=== PATIENT | female | born 1995 | race Caucasian/White ===

== ENCOUNTER 2017-02-05 15:32 | Observation (INO) | payer OTHER ==
[2017-02-05] MEDS ORDERED: Ondansetron INJ* 2 MG/ML VIAL IV ONE (18:36)
[2017-02-05] MEDS ORDERED: NS 0.9% 1000 ML* 2,000 ML IV ONE (18:36)
[2017-02-05] MEDS ORDERED: Ketorolac INJ* 30 MG/ML 1 ML VIAL IV PUSH ONE (18:36)
--- NOTE | 2017-02-05 19:29 | RAD ---
CLINICAL HISTORY: Left flank pain and hematuria COMPARISON: Pelvic ultrasound dated June 26, 2015 that demonstrates pathologically enlarged periuterine veins up to 7 mm in diameter. TECHNIQUE: Noncontrast CT examination of the abdomen and pelvis from the lung bases through the initial tuberosities. FINDINGS: VISUALIZED LUNG BASES: The visualized lung bases are grossly clear. There is no pleural effusion. ABDOMEN AND PELVIS: Evaluation of the solid organs and vasculature is limited without intravenous contrast. The liver, spleen, pancreas and adrenal glands are grossly normal in appearance. The gallbladder is normal. The kidneys are normal in appearance without focal mass, calcification or signs of hydronephrosis. Evaluation of the gastrointestinal tract is limited without oral contrast. The small and large bowel are not distended.The patient's normal appendix is identified in the right lower quadrant measuring approximately 6 mm in diameter (coronal image 33). There is no gross retroperitoneal or mesenteric lymphadenopathy. The pelvic viscera is normal in appearance. The left ovarian vein is enlarged measuring up to 8 x 15 mm in the axial plane (image 97 of 181). More complete evaluation of the abdominopelvic vasculature cannot be made on this noncontrast CT examination. For example a cannot be determined if there is Nutcracker syndrome or May Thurner syndrome. There are no sinister bone lesions. IMPRESSION: 1. No renal calculi or signs of hydroureteronephrosis. 2. No acute inflammatory change or evidence of pathologic obstruction involving the gastrointestinal tract within the limitations of a noncontrast enhanced CT. 3. The left ovarian vein is enlarged measuring up to 8 x 15 mm in the axial plane. On the patient's June 26, 2015 pelvic ultrasound there are pathologically dilated periuterine veins documented. Such imaging findings can be seen in the setting of pelvic congestion syndrome.
[2017-02-05 19:33] LABS: Hematocrit 42 % (35-47); Hemoglobin 13.3 g/dl (12.0-16.0); Mean Corpuscular HGB Conc 32 g/dl (31-36); Mean Corpuscular Hemoglobin 28 pg (27-31); Mean Corpuscular Volume 87 fL (80-97); Mean Platelet Volume 9 um3 (7.4-10.4); Red Blood Count 4.76 10^6/ul (4.0-5.4); Red Cell Distribution Width 13 % (10.5-15); White Blood Count 11.5 10^3/ul (3.5-10.8)
[2017-02-05 19:50] LABS: Albumin 4.5 g/dL (3.2-5.2); Calcium 9.2 mg/dL (8.6-10.3); EGFR African American 114.8 (>60); EGFR Non-African American 89.3 (>60); Globulin 2.7 g/dL (2-4); Potassium 3.9 mmol/L (3.5-5.0); Total Bilirubin 0.6 mg/dL (0.2-1.0); Total Protein 7.2 g/dL (6.4-8.9)
--- NOTE | 2017-02-05 21:50 | ED ---
Abdominal Pain/Female - HPI Summary HPI Summary: 21F LMP 2 weeks ago presents with LLQ pain for 3 days. She states pain radiates to her flank and has hematuria. She states that two weeks ago she noticed worms in her stool so she tried to get approval for antihelmic medication from insurance and she finally got it Sunday and took the medication. She states after that she developed this pain. She also states she has been constipated and has not had a bowel movement for two weeks. She admits to nausea but denies any vomiting. She has never had this pain before. She states she has not had a normal period in 3 years as she has been twice with last 8 months ago full term with no complications. She is not on any control. She states her pain is 8/10. She denies any vaginal discharge, dysuria, frequency, or urgency. - History of Current Complaint Chief Complaint: EDAbdPain Stated Complaint: ABD PAIN/3DAYS Time Seen by Provider: 02/05/17 18:21 Hx Last Menstrual Period: April 2013 Pain Intensity: 8 Allergies/Adverse Reactions: Allergies Allergy/AdvReac Type Severity Reaction Status Date / Time Amoxicillin Allergy Severe Anaphylatic Verified 02/05/17 15:34 Shock Penicillins Allergy Severe Anaphylatic Verified 02/05/17 15:34 Shock Lactose Intolerance (GI) Allergy GI upset Verified 02/05/17 15:34 PMH/Surg Hx/FS Hx/Imm Hx Cardiovascular History: Denies: Hx Pacemaker/ICD Respiratory History: Reports: Hx Asthma - RESCUE INHALER GI History: Reports: Other GI Disorders - ABDOMINAL PAINS Sensory History: Denies: Hx Contacts or Glasses, Hx Hearing Aid Opthamlomology History: Denies: Hx Contacts or Glasses Psychiatric History: Reports: Hx Anxiety - MILD, Hx Depression - MILD Denies: Hx Panic Disorder - Surgical History Surgery Procedure, Year, and Place: 2008 TONSILLECTOMY AND ADENOIDECTOMY, [facility]. 06/16/15 office procedure to have cells removed from uterus Hx Anesthesia Reactions: No Infectious Disease History: No Infectious Disease History: Denies: Traveled Outside the [place] in Last 30 Days - Family History Known Family History: Positive: None Negative: Blood Disorder - Social History Alcohol Use: Occasionally Substance Use Type: Reports: None Smoking Status (MU): Never Smoked Tobacco Review of Systems Negative: Fever Negative: Chest Pain Negative: Shortness Of Breath Positive: Abdominal Pain, Nausea, Other - constipation Positive: flank pain, hematuria All Other Systems Reviewed And Are Negative: Yes Physical Exam Triage Information Reviewed: Yes Vital Signs On Initial Exam: Initial Vitals Temp Pulse Resp BP Pulse Ox 98.2 F 75 16 113/62 99 02/05/17 15:34 02/05/17 15:34 02/05/17 15:34 02/05/17 15:34 02/05/17 15:34 Vital Signs Reviewed: Yes Appearance: Positive: Pain Distress Skin: Positive: Warm, Dry Head/Face: Positive: Normal Head/Face Inspection Eyes: Positive: Normal, EOMI, MIRANDA, Conjunctiva Clear ENT: Positive: Normal ENT inspection, Pharynx normal, TMs normal Respiratory/Lung Sounds: Positive: Clear to Auscultation, Breath Sounds Present Cardiovascular: Positive: Normal, RRR Abdomen Description: Positive: Soft, CVA Tenderness (L), Other: - tenderness LLQ , no rebound Bowel Sounds: Positive: Present - Dell Coma Scale Coma Scale Total: 15 Diagnostics - Vital Signs Vital Signs Temp Pulse Resp BP Pulse Ox 02/05/17 20:00 69 106/54 99 02/05/17 19:30 65 105/59 100 02/05/17 19:16 63 100 02/05/17 19:14 96/46 02/05/17 19:10 98.2 F 64 18 96/46 99 02/05/17 17:33 97.9 F 94 18 114/57 100 02/05/17 15:34 98.2 F 75 16 113/62 99 - Laboratory Lab Results: Lab Results 02/05/17 02/05/17 Range/Units 19:30 19:30 WBC 11.5 H (3.5-10.8) 10^3/ul RBC 4.76 (4.0-5.4) 10^6/ul Hgb 13.3 (12.0-16.0) g/dl Hct 42 (35-47) % MCV 87 (80-97) fL MCH 28 (27-31) pg MCHC 32 (31-36) g/dl RDW 13 (10.5-15) % Plt Count 269 (150-450) 10^3/ul MPV 9 (7.4-10.4) um3 Neut % (Auto) 81.9 (38-83) % Lymph % (Auto) 13.4 L (25-47) % Bullock % (Auto) 4.0 (1-9) % Eos % (Auto) 0.1 (0-6) % Baso % (Auto) 0.6 (0-2) % Absolute Neuts (auto) 9.4 H (1.5-7.7) 10^3/ul Absolute Lymphs (auto) 1.5 (1.0-4.8) 10^3/ul Absolute Monos (auto) 0.5 (0-0.8) 10^3/ul Absolute Eos (auto) 0 (0-0.6) 10^3/ul Absolute Basos (auto) 0.1 (0-0.2) 10^3/ul Absolute Nucleated RBC 0.01 10^3/ul Nucleated RBC % 0 Sodium 136 (133-145) mmol/L Potassium 3.9 (3.5-5.0) mmol/L Chloride 104 (101-111) mmol/L Carbon Dioxide 25 (22-32) mmol/L Anion Gap 7 (2-11) mmol/L BUN 13 (6-24) mg/dL Creatinine 0.81 (0.51-0.95) mg/dL Est GFR ( Amer) 114.8 (>60) Est GFR (Non-Af Amer) 89.3 (>60) BUN/Creatinine Ratio 16.0 (8-20) Glucose 74 (70-100) mg/dL Calcium 9.2 (8.6-10.3) mg/dL Total Bilirubin 0.60 (0.2-1.0) mg/dL AST 13 (13-39) U/L ALT 7 (7-52) U/L Alkaline Phosphatase 59 (34-104) U/L C-React Prot High Sens 0.22 mg/L Total Protein 7.2 (6.4-8.9) g/dL Albumin 4.5 (3.2-5.2) g/dL Globulin 2.7 (2-4) g/dL Albumin/Globulin Ratio 1.7 (1-3) Lipase 20 (11.0-82.0) U/L Beta HCG, Quant 3614.00 mIU/mL Result Diagrams: 02/05/17 19:30 02/05/17 19:30 Lab Statement: Any lab studies that have been ordered have been reviewed, and results considered in the medical decision making process. - Ultrasound No standard instances Ultrasound Interpretation: Positive (See Comments) - There is no live intrauterine gestation identified. In the left adnexa there is a moderately vascular structure with an anechoic center which could be consistent with ectopic in the correct clinical setting. Other potential etiologies include a too early to visualize or missed . Close clinical and sonographic follow-up including serial beta hCGs are advised. 2. As was documented on the patient's prior pelvic ultrasound there are dilated parauterine veins measuring up to 7 mm in diameter. Ultrasound Interpretation Completed By: Radiologist Abdominal Pain Fem Course/Dx - Course Course Of Treatment: 21F LMP 2 weeks ago presents with LLQ pain for 3 days. She states pain radiates to her flank and has hematuria. She states that two weeks ago she noticed worms in her stool so she tried to get approval for antihelmic medication from insurance and she finally got it Sunday and took the medication. She states after that she developed this pain. She also states she has been constipated and has not had a bowel movement for two weeks. She admits to nausea but denies any vomiting. She has never had this pain before. She states she has not had a normal period in 3 years as she has been twice with last 8 months ago full term with no complications. She is not on any control. She states her pain is 8/10. She denies any vaginal discharge, dysuria, frequency, or urgency. on exam tenderness in LLQ and pos CVA tenderness left flank. do to pt stating LMP [address] as was concerned for kidney stone. CT normal. patient labs HCG 3000. got u/s and shows ectopic. called dr isabel who will take to OR. - Diagnoses Differential Diagnosis: Positive: Constipation, Ectopic , Renal Colic, Urinary Tract Infection Provider Diagnoses: Ectopic - Provider Notifications Discussed Care Of Patient With: dr isabel Time Discussed With Above Provider: 11:00 - will see in ED Discharge - Discharge Plan Condition: Stable Disposition: ADMITTED TO [facility]
--- NOTE | 2017-02-05 22:00 | RAD ---
HISTORY: Left lower quadrant pain with a beta-hCG measuring 3614. COMPARISONS: CT of the abdomen and pelvis from the same date at did not show any acute abnormalities. TECHNIQUE: Multiple transverse and longitudinal ultrasound images were obtained of the pelvis using grayscale, color flow, spectral and M-mode sonographic imaging. FINDINGS: UTERUS: The uterus measures 7.1 x 4.1 x 5.1 cm. The mildly heterogeneous endometrium measures 8 mm in thickness. GESTATION: There is no gestational sac, pole or yolk sac identified in the endometrial canal. At the left adnexa there is an anechoic structure surrounded by minimally vascular echogenic material measuring approximately 1.8 x 2.3 x 2.7 cm. There is peripheral vascularity of the structure. There is a [id number] amount of free fluid in the adnexa. As was noted on prior sonograms there are enlarged parauterine veins measuring up to 7 mm in diameter. RIGHT OVARY: The right ovary measures 3.3 x 1.9 x 2.2 cm. LEFT OVARY: The left ovary measures 3.5 x 1.5 x 2.5 cm. IMPRESSION: 1. There is no live intrauterine gestation identified. In the left adnexa there is a moderately vascular structure with an anechoic center which could be consistent with ectopic in the correct clinical setting. Other potential etiologies include a too early to visualize or missed . Close clinical and sonographic follow-up including serial beta hCGs are advised. 2. As was documented on the patient's prior pelvic ultrasound there are dilated parauterine veins measuring up to 7 mm in diameter. Findings, specifically the possibility for ectopic , were discussed with ARIK Arriola over the telephone at 2156 hours on February 05, 2017.
[2017-02-05] MEDS ORDERED: Bupivacaine 0.25% SDV* 30 ML ONE (23:49)
[2017-02-05] MEDS ORDERED: Midazolam* 1 MG/ML 5 ML VIAL (5 MG) ONE (23:52)
[2017-02-05] MEDS ORDERED: fentaNYL* 50 MCG/ML 5 ML VIAL (250 MCG VIAL) ONE (23:52)
[2017-02-05] MEDS ORDERED: Propofol* 10 MG/ML 20 ML BTL IV PUSH ONE (23:53)
[2017-02-05] MEDS ORDERED: Ondansetron INJ* 2 MG/ML VIAL ONE (23:53)
[2017-02-05] MEDS ORDERED: Ketorolac INJ* 30 MG/ML 1 ML VIAL ONE (23:53)
[2017-02-05] MEDS ORDERED: Atracurium* 10 MG/ML 10 ML VIAL ONE (23:53)
[2017-02-05] MEDS ORDERED: Lidocaine 2% PF * 5 ML VIAL ONE (23:53)
[2017-02-06] MEDS ORDERED: Dexamethasone IV* 4 MG/ML 1 ML (4 MG) IV SLOW PU ONE (00:01)
[2017-02-06] MEDS ORDERED: Sodium Citrate/Citric Acid* 15 ML UDC PO ONE (00:01)
[2017-02-06] MEDS ORDERED: Buffered Lidocaine 0.9% SYRIN* 5 ML/SYR SYRINGE INTRADERM ONE (00:01)
[2017-02-06] MEDS ORDERED: Metoclopramide IV* 5 MG/ML 2 ML VIAL IV SLOW PU ONE (00:01)
[2017-02-06] MEDS ORDERED: Famotidine IV* 10 MG/ML 2 ML (20 mg) IV ONE (00:01)
[2017-02-06] MEDS ORDERED: Metoclopramide TAB* 10 MG ONE (00:03)
[2017-02-06] MEDS ORDERED: Famotidine IV* 10 MG/ML 2 ML (20 mg) ONE (00:03)
[2017-02-06] MEDS ORDERED: Dexamethasone IV* 4 MG/ML 1 ML (4 MG) ONE (00:03)
[2017-02-06] MEDS ORDERED: Sodium Citrate/Citric Acid* 15 ML UDC ONE (00:03)
[2017-02-06] MEDS ORDERED: Metoclopramide IV* 5 MG/ML 2 ML VIAL ONE (00:08)
[2017-02-06] MEDS ORDERED: Levalbuterol HFA INHALER* 1 PUFF MDI ONE (00:20)
[2017-02-06] MEDS ORDERED: Lidocaine 2% PF * 5 ML VIAL ONE (00:26)
[2017-02-06] MEDS ORDERED: fentaNYL* 50 MCG/ML 2 ML VIAL (100 MCG VIAL) ONE (00:54)
[2017-02-06] MEDS ORDERED: HYDROmorphone* 1 MG/ML 1 ML SYR IV PRN (00:55)
[2017-02-06] MEDS ORDERED: Ondansetron INJ* 2 MG/ML VIAL IV PRN (00:55)
[2017-02-06] MEDS ORDERED: DiMENhydriNATE IV* 50 MG/ML VIAL IV PUSH PRN (00:55)
[2017-02-06] MEDS ORDERED: fentaNYL* 50 MCG/ML 2 ML VIAL (100 MCG VIAL) IV PRN (00:55)
[2017-02-06] MEDS ORDERED: Scopolamine 1.5 mg* PATCH TRANSDERM PRN (00:55)
[2017-02-06] MEDS ORDERED: Glycopyrrolate IV* 0.2 MG/ML 1 ML VIAL ONE (01:03)
[2017-02-06] MEDS ORDERED: Ibuprofen TAB* 600 MG PO PRN (01:49)
[2017-02-06] MEDS ORDERED: oxyCODONE/Acetamin 5/325 MG* TAB PO PRN ×2 (01:49→01:51)
[2017-02-06 06:03] LABS: Hematocrit 37 % (35-47); Hemoglobin 12.1 g/dl (12.0-16.0); Mean Corpuscular HGB Conc 32 g/dl (31-36); Mean Corpuscular Hemoglobin 28 pg (27-31); Mean Corpuscular Volume 87 fL (80-97); Mean Platelet Volume 8 um3 (7.4-10.4); Red Blood Count 4.28 10^6/ul (4.0-5.4); Red Cell Distribution Width 13 % (10.5-15); White Blood Count 11.6 10^3/ul (3.5-10.8)
[2017-02-06 07:58] VITALS: BP 93/65
--- NOTE | 2017-02-06 17:22 | OP ---
DATE OF OPERATION: 02/06/17 - ROOM #346 DATE OF : 89 SURGEON: Dr. Rutledge. MANUFACTURING OPERATOR: Dr. Caba. ANESTHESIOLOGIST: Dr. Zurita ANESTHESIA: General endotracheal anesthesia. PRE-OP DIAGNOSIS: Left tubal ectopic . POST-OP DIAGNOSIS: Left tubal ectopic . OPERATIVE PROCEDURE: Laparoscopic left salpingectomy. ESTIMATED BLOOD LOSS: Minimal, less than 50 cc. URINE OUTPUT: 300 cc clear urine. FINDINGS: Anteverted uterus, normal-appearing right fallopian tube, normal- appearing right ovary, left fallopian tube with an ampullary ectopic, there was hemoperitoneum, and the left ovary appeared normal. COMPLICATIONS: None. COUNTS: Sponge, lap, and needle count correct x2. CONDITION: The patient was brought to recovery room in stable condition. DESCRIPTION OF PROCEDURE: The patient was brought to the operating room. When general anesthesia was found to be adequate, a Perez catheter was placed under sterile conditions. The patient was prepped and draped in the usual sterile fashion in the dorsal supine position. Time-out was performed. A 10 mm skin incision was made in the infraumbilical fold, using the S retractors and a Rosemarie clamp the fascia was identified. The fascia was grasped between two Kavitha clamps and the fascia was incised with a scalpel. The fascia was tagged with 0 Vicryl with UR 6 needles. The peritoneum was entered bluntly. The Hernan was placed, correct placement was confirmed with a laparoscope. Pneumoperitoneum was achieved. Lidocaine was instilled approximately 2 cm above the suprapubic bone in the midline, a 5 mm skin incision was made and 5 mm trocar and sleeve were advanced under direct visualization. Lidocaine was instilled in the right lower quadrant. A 5 mm skin incision was made and a 5 mm trocar and sleeve were advanced under direct visualization. Exam of the abdomen and pelvis was performed with the above findings noted. The left fallopian tube was grasped with a blunt grasper and using the LigaSure, the left fallopian tube was excised with the ectopic which took up the entire ampulla to the fimbriated end. Excellent hemostasis was noted. The left fallopian tube with ectopic was placed in the endobag and removed under direct visualization. The incision site was examined. There was no bleeding seen. The suction hoisting laborer was used to remove hemoperitoneum, again the incision site was examined and found to be hemostatic. The 5 mm trocars were removed under direct visualization. The 10 mm trocar was removed with the laparoscope in place. The fascia was closed using 0 Vicryl. No defect was palpated after closure. The skin was closed using 4-0 suture. Steri-Strips were applied. Perez catheter was removed. The patient tolerated the procedure well. [id number]/[facility] #: [id number] MTDD
[2017-02-09] MEDS ORDERED: Scopolomine PATCH Remove* 1 NOTE MISC PATCH OFF ONE (00:56)
== END 2017-02-06 12:15 | disposition home or self-care (01) ==
LOC: ED 15:32 → OR 23:45 → SSU 02-06 02:58
PROVIDERS: ADMIT Obstetrics & Gynecology; ATTEND Obstetrics & Gynecology
DX: O00.10 Tubal pregnancy without intrauterine pregnancy (principal); K66.1 Hemoperitoneum; J45.909 Unspecified asthma, uncomplicated
CPT/HCPCS: 36415; 74176; 76817; 80053; 83690; 84702; 85025; 85027; 86141; 86850; 86900; 86901; 88305; 99282; A9270-GY; G0378; J1100; J1885; J2250; J2405; J2704; J2765; J3010

== ENCOUNTER 2017-09-17 12:06 | Emergency (ER) | payer OTHER ==
[2017-09-17 13:14] VITALS: BP 98/55
--- NOTE | 2017-09-17 14:08 | UC ---
Abdominal Pain Female HPI - HPI Summary HPI Summary: Low abd pain R>L with radiation down anterior R leg for about a week. Also occ has the sensation that her legs are warm, "like I wet myself," despite them being dry. Denies numbness or weakness. Hx L-sided ectopic 7 months ago with surgical removal of L tube. -- 2 vaginal births, 1 ectopic, 1 ab. Currently has mirena in, not trying for . No n/v/d, some increased burping. - History of Current Complaint Chief Complaint: UCBackPain Stated Complaint: LEG AND ABDOMINAL PAIN Time Seen by Provider: 09/17/17 13:55 Hx Obtained From: Patient Hx Last Menstrual Period: Mirena- unknown ?: No Onset/Duration: Gradual Onset, Lasting Days Timing: Constant Severity Initially: Mild Severity Currently: Moderate Pain Intensity: 5 Location: Suprapubic Radiates: Yes Radiates to: Other - R leg Character: Aching, Cramping Aggravating Factor(s): Nothing Alleviating Factor(s): Nothing Associated Signs and Symptoms: Negative: Fever, Cough, Urinary Symptoms, Vaginal Bleeding, Vaginal Discharge, Nausea, Vomiting Allergies/Adverse Reactions: Allergies Allergy/AdvReac Type Severity Reaction Status Date / Time amoxicillin Allergy Severe Anaphylatic Verified 09/17/17 14:42 Shock Penicillins Allergy Severe Anaphylatic Verified 09/17/17 14:42 Shock lactose intolerance Allergy GI Upset Uncoded 09/17/17 14:42 PMH/Surg Hx/FS Hx/Imm Hx Previously Healthy: Yes Other GI/ History: ectopic Jan 2017 - Surgical History Surgical History: Yes Surgery Procedure, Year, and Place: [facility]15 office procedure to have cells removed from uterus - Family History Known Family History: Positive: None Negative: Blood Disorder - Social History Occupation: Employed Full-time Lives: With Family Alcohol Use: Occasionally Substance Use Type: None Smoking Status (MU): Never Smoked Tobacco - Immunization History Vaccination Up to Date: Yes Review of Systems Constitutional: Negative Skin: Negative Eyes: Negative ENT: Negative Respiratory: Negative Cardiovascular: Negative Gastrointestinal: Abdominal Pain Genitourinary: Negative Motor: Negative Neurovascular: Negative Musculoskeletal: Negative Neurological: Negative Psychological: Negative Is Patient Immunocompromised?: No All Other Systems Reviewed And Are Negative: Yes Physical Exam Triage Information Reviewed: Yes Appearance: Well-Appearing, No Pain Distress, Well-Nourished Vital Signs: Initial Vital Signs Temp 98.8 F 09/17/17 13:10 Pulse 78 09/17/17 13:10 Resp 16 09/17/17 13:10 BP 98/55 09/17/17 13:10 Pulse Ox 100 09/17/17 13:10 Vital Signs Reviewed: Yes Eye Exam: Normal Eyes: Positive: Conjunctiva Clear ENT Exam: Normal ENT: Positive: Normal ENT inspection, Hearing grossly normal, Pharynx normal, TMs normal. Negative: Nasal congestion Neck exam: Normal Neck: Positive: Supple, Nontender, No Lymphadenopathy Respiratory Exam: Normal Respiratory: Positive: Chest non-tender, Lungs clear, Normal breath sounds, No respiratory distress, No accessory muscle use Cardiovascular Exam: Normal Cardiovascular: Positive: RRR, No Murmur Abdomen Description: Positive: Soft, Other: - general low abd tenderness. Negative: CVA Tenderness (R), CVA Tenderness (L), Guarding Bowel Sounds: Positive: Present Musculoskeletal Exam: Normal Musculoskeletal: Positive: Strength Intact, ROM Intact Neurological Exam: Normal Neurological: Positive: Alert Psychological Exam: Normal Skin Exam: Normal Diagnostics - Radiology No standard instances Xray Interpretation: Positive (See Comments) - bilat ovarian cysts, no ectopic or ovarian torsion Abd Pain Female Course/Dx - Differential Dx/Diagnosis Provider Diagnoses: L ovarian cyst Discharge - Discharge Plan Condition: Stable Disposition: HOME Referrals: Gena Casper PA [Primary Care Provider] -
--- NOTE | 2017-09-17 14:56 | RAD ---
INDICATION: Right lower quadrant pain. COMPARISON: Comparison is made with a prior pelvic ultrasound from February 05, 2017. TECHNIQUE: Multiple real-time transvaginal images of the pelvis were obtained. FINDINGS: The uterus is retroverted and normal in size, shape and echogenicity. The uterus measured 7.6 x 5.2 x 6.2 cm. The endometrial echo measured 0.6 cm in thickness. There is an IUD in place which appears to be in normal position. The right ovary measured 4.0 x 2.4 x 2.1 cm. The left ovary measured 7.0 x 4.6 x 3.5 cm. There is vascular flow within both ovaries. There are ovarian cysts present. The largest cyst in the left ovary measures 3.7 x 3.2 x 3.5 cm and appears to be a simple cyst. The uterus and ovaries are shifted toward the right side. The left ovary is roughly midline in position. There is a small amount of free intraperitoneal fluid present adjacent to the uterus. IMPRESSION: 1. 3.7 CM LEFT OVARIAN CYST. NO EVIDENCE FOR OVARIAN TORSION. 2. SMALL AMOUNT OF FREE INTRAPERITONEAL FLUID. 3. IUD IN PLACE.
== END 2017-09-17 15:05 | disposition home or self-care (01) ==
LOC: UCEAST 12:06
DX: N83.202 Unspecified ovarian cyst, left side (principal); Z32.02 Encounter for pregnancy test, result negative; Z97.5 Presence of (intrauterine) contraceptive device; Z88.0 Allergy status to penicillin
CPT/HCPCS: 76830; 81003; 84702; 99212; G0463

== ENCOUNTER 2018-08-09 19:42 | Emergency (ER) | payer BC, OTHER ==
[2018-08-09] MEDS ORDERED: Acetaminophen TAB* 325 MG PO ONE (21:50)
[2018-08-09] MEDS ORDERED: Lactated Ringers 1000 ML Bag* 1,000 ML IV SCH (21:50)
--- NOTE | 2018-08-09 21:52 | ED ---
Abdominal Pain/Female - HPI Summary HPI Summary: This patient is a 22 year old female presenting to [facility] accompanied by family with a chief complaint of abd pain since 4 hours ago. Patient states that she was at rest and doing nothing in particular when the pain flared up. The pain is generalized, but worse in the RLQ. Patient states that she is . She took a test yesterday because her stomach felt odd, which was positive. Patient presents to the ED because now her stomach feels horrible. The pain is rated 6/10 in severity. Symptoms aggravated by nothing. Symptoms alleviated by nothing. Patient denies diarrhea, vomiting. Patient additionally complains of nausea. Patient has had 2 live vaginal births and 1 ectopic . - History of Current Complaint Chief Complaint: EDAbdPain Stated Complaint: ABD PAIN Time Seen by Provider: 08/09/18 21:43 Hx Obtained From: Patient Hx Last Menstrual Period: 5 years ago ?: Yes Onset/Duration: Lasting Hours, Still Present Timing: Constant Severity Currently: Moderate Pain Intensity: 6 Pain Scale Used: 0-10 Numeric Location: Diffuse, Discrete At: RLQ, Discrete At: LLQ Aggravating Factor(s): Nothing Alleviating Factor(s): Nothing Associated Signs and Symptoms: Positive: Negative - vomiting, diarrhea Allergies/Adverse Reactions: Allergies Allergy/AdvReac Type Severity Reaction Status Date / Time amoxicillin Allergy Severe Anaphylatic Verified 03/11/18 11:48 Shock Penicillins Allergy Severe Anaphylatic Verified 03/11/18 11:48 Shock lactose AdvReac GI Upset Verified 08/09/18 23:08 Home Medications: Home Medications Bupropion XL* [Wellbutrin XL *] 150 mg PO DAILY 08/10/18 [History Confirmed 03/20] Etonogest/Eth.estradiol (Nf) [Nuvaring Vaginal Ring] 1 dose VAGINAL MONTHLY 03/20 [History Confirmed 08/10/18] Famotidine TAB* [Pepcid 20 MG TAB*] 20 mg PO BID 08/10/18 [History Confirmed 03/20] Sucralfate SUSP (NF) [Carafate SUSP (NF)] 100 mg PO DAILY 08/10/18 [History Confirmed 08/10/18] PMH/Surg Hx/FS Hx/Imm Hx Previously Healthy: No Endocrine/Hematology History: Denies: Hx Anticoagulant Therapy Cardiovascular History: Denies: Hx Pacemaker/ICD Respiratory History: Reports: Hx Asthma - RESCUE INHALER GI History: Reports: Other GI Disorders - ABDOMINAL PAINS Sensory History: Denies: Hx Contacts or Glasses, Hx Hearing Aid Opthamlomology History: Denies: Hx Contacts or Glasses Psychiatric History: Reports: Hx Anxiety - MILD, Hx Depression - MILD Denies: Hx Panic Disorder - Surgical History Surgery Procedure, Year, and Place: 2007 TONSILLECTOMY AND ADENOIDECTOMY, [facility]. 06/16/15 office procedure to have cells removed from uterus Hx Anesthesia Reactions: No Infectious Disease History: No Infectious Disease History: Denies: Traveled Outside the [place] in Last 30 Days - Family History Known Family History: Negative: Respiratory Disease, Seizure Disorder, Blood Disorder - Social History Lives: With Family Alcohol Use: None Hx Substance Use: No Substance Use Type: Reports: None Hx Tobacco Use: No Smoking Status (MU): Never Smoked Tobacco Review of Systems Negative: Fever Positive: Abdominal Pain, Nausea. Negative: Vomiting, Diarrhea All Other Systems Reviewed And Are Negative: Yes Physical Exam - Summary Physical Exam Summary: VITAL SIGNS: Reviewed. GENERAL: Patient is a well-developed and nourished female who is lying comfortable in the stretcher. Patient is not in any acute respiratory distress. HEAD AND FACE: No signs of trauma. No ecchymosis, hematomas or skull depressions. No sinus tenderness. EYES: PERRLA, EOMI x 2, No injected conjunctiva, no nystagmus. EARS: Hearing grossly intact. Ear canals and tympanic membranes are within normal limits. MOUTH: Oropharynx within normal limits. NECK: Supple, trachea is midline, no adenopathy, no JVD, no carotid bruit, no c- spine tenderness, neck with full ROM. CHEST: Symmetric, no tenderness at palpation LUNGS: Clear to auscultation bilaterally. No wheezing or crackles. CVS: Regular rate and rhythm, S1 and S2 present, no murmurs or gallops appreciated. ABDOMEN: Soft. No signs of distention. Bowel sounds are normal. Bilateral lower quadrant tenderness. EXTREMITIES: FROM in all major joints, no edema, no cyanosis or clubbing. NEURO: Alert and oriented x 3. No acute neurological deficits. Speech is normal and follows commands. SKIN: Dry and warm Triage Information Reviewed: Yes Vital Signs On Initial Exam: Initial Vitals Temp Pulse Resp BP Pulse Ox 98.6 F 78 16 125/67 98 08/09/18 19:48 08/09/18 19:48 08/09/18 19:48 08/09/18 19:48 08/09/18 19:48 Vital Signs Reviewed: Yes Diagnostics - Vital Signs Vital Signs Temp Pulse Resp BP Pulse Ox 08/09/18 19:48 98.6 F 78 16 125/67 98 - Laboratory Result Diagrams: 08/09/18 22:02 08/09/18 22:01 Lab Statement: Any lab studies that have been ordered have been reviewed, and results considered in the medical decision making process. - Additional Comments Diagnostic Additional Comments: Transvaginal reveals, per radiologist, IMPRESSION: of unknown location. Recommend followup ultrasound in 7-10 days to confirm viability. ED physician has reviewed this radiology report. Abdominal Pain Fem Course/Dx - Course Course Of Treatment: This patient is a 22 year old female presenting to [facility] accompanied by family with a chief complaint of abd pain since 4 hours ago. US Transvaginal reveals, per radiologist, IMPRESSION: of unknown location. Recommend followup ultrasound in 7-10 days to confirm viability. ED physician has reviewed this radiology report. Bloodwork Obtained. Urinalysis Obtained. Test results with no significant abnormalities except for a Beta HCG level of 194. In the ED course the patient was given LR bolus IV, Acetaminophen. The pt is hemodynamically stable, alert and oriented x3. It is too early to see IUP because the Beta HCG level is too low. Patient states that she has her own OBGYN in [place]. As a result, we advised the patient to repeat her Beta HCG on Sunday to make sure that it is doubling appropriately as normal for intrauterine . Patient will see her OB doctor on Sunday. Patient will be discharged with a dx of early . Patient is advised to follow up with OBGYN on Sunday. The patient is agreeable with this plan. - Diagnoses Provider Diagnoses: Early stage of Discharge - Sign-Out/Discharge Documenting (check all that apply): Patient Departure Patient Received Moderate/Deep Sedation with Procedure: No - Discharge Plan Condition: Stable Disposition: HOME Patient Education Materials: Early Labor Signs (ED), Abdominal Pain in (ED) Referrals: No Primary Care Phys,NOPCP [Primary Care Provider] - Additional Instructions: Schedule an appointment with your OBGYN in [place] and see him on Sunday, 05/2019. Recheck Beta HCG level to see if it has double appropriately. Return to the ED for any new or worsening symptoms/pain. - Attestation Statements Document Initiated by Sonidoibe: Yes Documenting Scribe: Radha Ruiz Provider For Whom Connie is Documenting (Include Credential): Elan Mills MD Scribe Attestation: I, Radha Ruiz, scribed for Elan Mills MD on 08/10/18 at 0032. Status of Scribe Document: Ready
[2018-08-09 22:11] LABS: ABS Basophils 0.1 10^3/ul (0-0.2); ABS Eosinophils 0.1 10^3/ul (0-0.6); ABS Lymphocytes 2.8 10^3/ul (1.0-4.8); ABS Monocytes 0.5 10^3/ul (0-0.8); ABS Neutrophils 5.1 10^3/ul (1.5-7.7); ABS Nucleated RBC 0 10^3/ul; Hematocrit 39 % (35-47); Hemoglobin 12.9 g/dl (12.0-16.0); Lymphocyte % 32.5 %; Mean Corpuscular HGB Conc 33 g/dl (31-36); Mean Corpuscular Hemoglobin 28 pg (27-31); Mean Corpuscular Volume 86 fL (80-97); Mean Platelet Volume 8.1 fL (7.4-10.4); Nucleated Red Blood Cells % 0; Platelet Count 314 10^3/ul (150-450); Red Blood Count 4.56 10^6/ul (4.00-5.40); Red Cell Distribution Width 13 % (10.5-15); White Blood Count 8.5 10^3/ul (3.5-10.8)
[2018-08-09] MEDS ORDERED: Lactated Ringers 1000 ML Bag* 1,000 ML ONE (22:26)
[2018-08-09 22:28] LABS: Albumin/Globulin Ratio 1.7 (1-3); BUN/Creatinine Ratio 14.5 (8-20); EGFR African American 115.1 (>60); EGFR Non-African American 95.2 (>60); Globulin 2.3 g/dL (2-4); Potassium 3.9 mmol/L (3.5-5.0); Total Bilirubin 0.2 mg/dL (0.2-1.0); Total Protein 6.3 g/dL (6.4-8.9)
[2018-08-09 22:35] LABS: HCG Pregnancy 194.3 mIU/mL
[2018-08-10 00:11] LABS: Urine Appearance Cloudy; Urine Bacteria Absent (Absent); Urine Bilirubin Negative (Negative); Urine Blood Negative (Negative); Urine Color Yellow; Urine Glucose Negative (Negative); Urine Ketones Negative (Negative); Urine Nitrite Negative (Negative); Urine Protein Negative (Negative); Urine Red Blood Cell Absent (Absent); Urine Specific Gravity 1.027 (1.010-1.030); Urine Squamous Epithelial Cell Present (Absent); Urine Urobilinogen Negative (Negative); Urine White Blood Cell Trace(0-5/hpf) (Absent)
[2018-08-10 01:07] VITALS: BP 105/62
== END 2018-08-10 01:00 | disposition home or self-care (01) ==
LOC: ED 19:42
DX: O26.899 Other specified pregnancy related conditions, unspecified trimester (principal); R10.31 Right lower quadrant pain; J45.909 Unspecified asthma, uncomplicated; F41.9 Anxiety disorder, unspecified; F32.9 Major depressive disorder, single episode, unspecified; Z88.0 Allergy status to penicillin
CPT/HCPCS: 36415; 76817; 80053; 81003; 81015; 82150; 84702; 85025; 87086; 99283; A9270-GY

== ENCOUNTER 2020-12-23 21:23 | Inpatient (IN) ==
[2020-12-24 02:51] LABS: ABS Basophils 0.1 10^3/ul (0-0.2); ABS Eosinophils 0.2 10^3/ul (0-0.6); ABS Lymphocytes 2.5 10^3/ul (1.0-4.8); ABS Monocytes 0.8 10^3/ul (0-0.8); ABS Neutrophils 17.3 10^3/ul (1.5-7.7); Eosinophil % 0.8 %; Hematocrit 37 % (35-47); Hemoglobin 12.2 g/dL (12.0-16.0); Lymphocyte % 11.8 %; Mean Corpuscular HGB Conc 33 g/dL (31-36); Mean Corpuscular Hemoglobin 28 pg (27-31); Mean Corpuscular Volume 85 fL (80-97); Mean Platelet Volume 8.4 fL (7.4-10.4); Platelet Count 264 10^3/uL (150-450); Red Blood Count 4.36 10^6 /uL (3.70-4.87); Red Cell Distribution Width 14 % (10-15); White Blood Count 20.9 10^3/uL (3.5-10.8)
[2020-12-24] MEDS ORDERED: Gentamicin ADULT 340 MG in NS 0.9% 100 ml BAG 100 ML IVPB ONE (02:56)
[2020-12-24] MEDS ORDERED: Clindamycin 900 MG/D5W BAG 900 MG/50 ML BAG IVPB ONE (02:56)
[2020-12-24 03:12] LABS: Albumin 3.8 g/dL (3.2-5.2); Albumin/Globulin Ratio 1.4 (1-3); C Reactive Protein 79.66 mg/L (<8.01); Calcium 8.6 mg/dL (8.6-10.3); EGFR Non-African American 79.3 (>60); Globulin 2.7 g/dL (2-4); Potassium 3.6 mmol/L (3.5-5.0); Total Bilirubin 0.4 mg/dL (0.2-1.0); Total Protein 6.5 g/dL (6.4-8.9)
[2020-12-24] MEDS ORDERED: Ondansetron 4 mg VIAL 2 MG/ML 2 ml VIAL IV PRN (03:46)
[2020-12-24] MEDS: Lactated Ringers 1000 ml BAG 1,000 ML IV SCH ×2 (07:41→17:10)
[2020-12-24] MEDS ORDERED: Clindamycin 900 MG/D5W BAG 900 MG/50 ML BAG IVPB SCH (11:00)
[2020-12-24 11:04] LABS: Urine Appearance Clear; Urine Bilirubin Negative (Negative); Urine Blood Negative (Negative); Urine Color Yellow; Urine Glucose Negative (Negative); Urine Ketones Negative (Negative); Urine Nitrite Negative (Negative); Urine Protein Negative (Negative); Urine Specific Gravity 1.017 (1.002-1.030); Urine Urobilinogen Negative (Negative)
[2020-12-24 11:08] LABS: Urine Bacteria Absent (Absent); Urine Red Blood Cell 1+(3-5/hpf) (Absent); Urine Squamous Epithelial Cell Present (Absent); Urine White Blood Cell 2+(11-20/hpf) (Absent)
[2020-12-24] MEDS ORDERED: Famotidine IV 10 MG/ML 2 ml VIAL (20 mg) IV ONE (12:15)
[2020-12-24] MEDS ORDERED: Lactated Ringers 1000 ml BAG 1,000 ML IV SCH (13:00)
[2020-12-24] MEDS ORDERED: Naloxone 0.4 mg VIAL 0.4 mg/ml 1 ml VIAL IV PRN (15:20)
[2020-12-24] MEDS ORDERED: oxyCODONE/Acetamin 5/325 mg TAB PO PRN (16:05)
[2020-12-24 18:25] LABS: ABS Lymphocytes 0.7 10^3/ul (1.0-4.8); ABS Monocytes 0.1 10^3/ul (0-0.8); ABS Neutrophils 15.6 10^3/ul (1.5-7.7); Eosinophil % 0.1 %; Hematocrit 39 % (35-47); Hemoglobin 12.5 g/dL (12.0-16.0); Lymphocyte % 4.5 %; Mean Corpuscular HGB Conc 32 g/dL (31-36); Mean Corpuscular Hemoglobin 28 pg (27-31); Mean Corpuscular Volume 88 fL (80-97); Mean Platelet Volume 8.3 fL (7.4-10.4); Platelet Count 259 10^3/uL (150-450); Red Blood Count 4.45 10^6 /uL (3.70-4.87); Red Cell Distribution Width 14 % (10-15); White Blood Count 16.4 10^3/uL (3.5-10.8)
[2020-12-24] MEDS: Clindamycin 900 MG/D5W BAG 900 MG/50 ML BAG IVPB SCH (19:40)
[2020-12-25] MEDS: Lactated Ringers 1000 ml BAG 1,000 ML IV SCH (02:27)
[2020-12-25] MEDS: Clindamycin 900 MG/D5W BAG 900 MG/50 ML BAG IVPB SCH ×2 (04:02→11:00)
[2020-12-25] MEDS: Gentamicin ADULT 80 MG in NS 0.9% 100 ml BAG 100 ML IVPB SCH ×2 (04:51→11:41)
[2020-12-25 08:10] LABS: ABS Eosinophils 0.1 10^3/ul (0-0.6); ABS Lymphocytes 2.2 10^3/ul (1.0-4.8); ABS Monocytes 0.7 10^3/ul (0-0.8); ABS Neutrophils 11.5 10^3/ul (1.5-7.7); Eosinophil % 0.4 %; Hematocrit 37 % (35-47); Lymphocyte % 15.1 %; Mean Corpuscular HGB Conc 32 g/dL (31-36); Mean Corpuscular Hemoglobin 28 pg (27-31); Mean Corpuscular Volume 86 fL (80-97); Mean Platelet Volume 8.8 fL (7.4-10.4); Platelet Count 266 10^3/uL (150-450); Red Blood Count 4.32 10^6 /uL (3.70-4.87); Red Cell Distribution Width 14 % (10-15); White Blood Count 14.5 10^3/uL (3.5-10.8)
[2020-12-25 11:56] LABS: EGFR African American 107.3 (>60); EGFR Non-African American 88.7 (>60)
[2020-12-25 11:59] VITALS: BP 109/71
[2020-12-26] MEDS ORDERED: Gentamicin PEAK LEVEL FOLLOW UP ONE (13:00)
== END 2020-12-25 12:30 | disposition home or self-care (01) | DRG 544 ==
LOC: ED 21:23 → SSU 12-24 04:50
PROVIDERS: ADMIT Obstetrics & Gynecology; ATTEND Obstetrics & Gynecology
PROC: O.GYD&C (2020-12-24 13:45)